=== PATIENT | male | born 1995 | race Caucasian/White ===

== ENCOUNTER → 2025-03-17 16:57 | Outpatient (REF) | payer OTHER, SELFPAY | LOC: RAD 16:57 | PROVIDERS: ATTENDING PHYSICIAN Internal Medicine Cardiovascular Disease; FAMILY PHYSICIAN Internal Medicine | DX: I10 Essential (primary) hypertension (principal); Q25.1 Coarctation of aorta | CPT/HCPCS: 71275; Q9967 ==